=== PATIENT | male | born 1980 | race Two or more races ===

== ENCOUNTER 2019-06-04 08:42 | Emergency (ER) | payer SELFPAY ==
--- NOTE | 2019-06-04 09:46 | EDM.PDOC ---
ED HPI GENERAL MEDICAL PROBLEM - General Chief Complaint: Fever Stated Complaint: FEVER Time Seen by Provider: 06/04/19 09:46 - History of Present Illness INITIAL COMMENTS - FREE TEXT/NARRATIVE: 39-year-old male presents the emergency room with fevers and chills and aches all over. This started on Wednesday he is used some Tylenol and over the counter flu remedies without much success. His biggest complaint at this time is a sore throat and being achy all over he has a mild cough. Patient denies any past medical problems he is not on any routine medications. Patient denies any prior surgeries. He has a low-grade fever here in the emergency department. Generalized Pain Score (Numeric/FACES): 8 - Related Data Home Meds: Home Meds Oseltamivir [Tamiflu] 75 mg PO BID #9 cap 06/04/19 [Rx] Past Medical History - Past Health History Medical/Surgical History: Denies Medical/Surgical History Social & Family History - Tobacco Use Smoking Status *Q: Never Smoker ED ROS GENERAL - Review of Systems Review Of Systems: See Below Constitutional: Reports: Fever, Chills, Malaise, Decreased Appetite. Denies: Weakness HEENT: Reports: No Symptoms Respiratory: Reports: Cough. Denies: Shortness of Breath, Wheezing, Sputum Cardiovascular: Reports: No Symptoms GI/Abdominal: Reports: Decreased Appetite. Denies: Abdominal Pain, Constipation , Diarrhea, Nausea, Vomiting : Reports: No Symptoms Musculoskeletal: Reports: Other (He is achy all over but no specific joints more tender than the others he has some muscle tenderness as well) Skin: Reports: No Symptoms Neurological: Reports: No Symptoms Psychiatric: Reports: No Symptoms ED EXAM, GENERAL - Physical Exam Exam: See Below Exam Limited By: No Limitations General Appearance: Alert, No Apparent Distress Eye Exam: Bilateral Eye: Normal Inspection Ears: Normal External Exam, Normal Canal, Hearing Grossly Normal, Normal TMs Nose: Normal Mucosa, No Blood, Clear Rhinorrhea Throat/Mouth: Normal Inspection, Normal Lips, Normal Teeth, Normal Gums, Normal Oropharynx, Normal Voice, No Airway Compromise Neck: Normal Inspection, Supple, Non-Tender. No: Lymphadenopathy (L), Lymphadenopathy (R) Respiratory/Chest: No Respiratory Distress, Lungs Clear, Normal Breath Sounds Cardiovascular: Regular Rate, Rhythm, No Edema, No Murmur GI/Abdominal: Normal Bowel Sounds, Soft, No Organomegaly Back Exam: Normal Inspection. No: CVA Tenderness (L), CVA Tenderness (R) Extremities: Normal Inspection, No Pedal Edema Neurological: Alert, Oriented, Normal Cognition Skin Exam: Warm, Dry, Intact, Normal Color, No Rash Course - Vital Signs Last Recorded V/S: Last Vital Signs Temp 38.1 C 06/04/19 09:08 Pulse 96 06/04/19 09:08 Resp 18 06/04/19 09:08 BP 146/93 H 06/04/19 09:08 Pulse Ox 96 06/04/19 09:08 - Orders/Labs/Meds Orders: Active Orders 24 hr Category Date Time Status CULTURE STREP A CONFIRMATION [RM] Stat Lab 06/04/19 09:23 Results STREP SCRN A RAPID W CULT CONF [] Stat Lab 06/04/19 09:23 Results Meds: Medications Discontinued Medications Generic Name Dose Route Start Last Admin Trade Name Freq PRN Reason Stop Dose Admin Oseltamivir Phosphate 75 mg 06/04/19 09:55 Tamiflu PO 06/04/19 09:56 ONETIME ONE - Re-Assessments/Exams Free Text/Narrative Re-Assessment/Exam: 06/04/19 10:01 Rapid strep negative confirmatory culture pending influenza screen is positive for influenza A. Discussed Tamiflu treatment for the patient including the risks and benefits he wishes to try this. Departure - Departure Time of Disposition: 10:02 Disposition: Home, Self-Care 01 Clinical Impression: Influenza A - Discharge Information Prescriptions: Oseltamivir [Tamiflu] 75 mg PO BID #9 cap Referrals: PCP,None [Primary Care Provider] - Forms: ED Department Discharge Additional Instructions: Return to the emergency room with any questions problems or worsening symptoms. Take the Tamiflu as directed. Follow-up in the hospital clinic if needed this next week. [phone]. Use Tylenol and/or Motrin as needed for aches and pains and fever. Push lots of fluids. Sepsis Event Note - Evaluation Sepsis Screening Result: No Definite Risk - Focused Exam Vital Signs: Vital Signs Temp Pulse Resp BP Pulse Ox 06/04/19 09:08 38.1 C 96 18 146/93 H 96 Date Exam was Performed: 06/04/19 Time Exam was Performed: 09:57 - My Orders Last 24 Hours: My Active Orders 06/04/19 09:23 STREP SCRN A RAPID W CULT CONF [RM] Stat - Assessment/Plan Last 24 Hours: My Active Orders 06/04/19 09:23 STREP SCRN A RAPID W CULT CONF [RM] Stat
[2019-06-04] MEDS ORDERED: Oseltamivir 75 MG Cap PO ONE (09:55)
== END 2019-06-04 10:20 | disposition home or self-care (01) ==
LOC: JD.ED 08:42
DX: J10.1 Influenza due to other identified influenza virus with other respiratory manifestations (principal)
CPT/HCPCS: 87081; 87430; 87804; 99283; A9270